=== PATIENT | female | born 1965 | race Asian ===

== ENCOUNTER 2016-09-15 02:24 | Emergency (ER) | payer OTHER ==
[~2016-09-15] VITALS: Ht 167.6 cm; Wt 136.1 kg
[~2016-09-15 02:24] MED LIST: HYDR25TA60 PO
[2016-09-15 03:05] LABS: PLATELET COUNT 288 K/uL (152-353)
[2016-09-15 03:25] LABS: POTASSIUM 3.7 mmol/L (3.6-5.2); SODIUM 134 mmol/L (136-145)
[2016-09-15 03:51] VITALS: BP 142/94; TEMP 98.1
== END 2016-09-15 03:51 | disposition home or self-care (01) ==
LOC: ED 02:24
DX: I10 Essential (primary) hypertension (principal); I20.9 Angina pectoris, unspecified
CPT/HCPCS: 36415; 80053; 82550; 84484; 85027; 86318; 93005; 99284

== ENCOUNTER 2016-11-16 03:00 | Emergency (ER) | payer OTHER ==
[~2016-11-16] VITALS: Ht 167.6 cm; Wt 149.2 kg
[2016-11-16 04:02] VITALS: BP 170/92; TEMP 98.4
== END 2016-11-16 04:05 | disposition home or self-care (01) ==
LOC: ED 03:00
DX: R00.2 Palpitations (principal)
CPT/HCPCS: 93005; 99283

== ENCOUNTER 2017-11-22 01:17 | Emergency (ER) | payer OTHER ==
[~2017-11-22] VITALS: Ht 167.6 cm; Wt 146.6 kg
[2017-11-22 01:22] VITALS: TEMP 97.7
[2017-11-22 02:14] VITALS: BP 169/88
== END 2017-11-22 02:15 | disposition home or self-care (01) ==
LOC: ED 01:17
DX: J20.9 Acute bronchitis, unspecified (principal); I10 Essential (primary) hypertension; R01.1 Cardiac murmur, unspecified
CPT/HCPCS: 99282

== ENCOUNTER 2018-06-16 22:22 | Emergency (ER) | payer OTHER ==
[~2018-06-16] VITALS: Ht 167.6 cm; Wt 136.1 kg
[2018-06-17 01:08] VITALS: BP 128/75; TEMP 98
== END 2018-06-17 01:16 | disposition home or self-care (01) ==
LOC: ED 22:22
DX: M25.562 Pain in left knee (principal); M25.561 Pain in right knee; S39.012A Strain of muscle, fascia and tendon of lower back, initial encounter; I10 Essential (primary) hypertension; M19.90 Unspecified osteoarthritis, unspecified site; W01.0XXA Fall on same level from slipping, tripping and stumbling without subsequent striking against object, initial encounter; Y92.238 Other place in hospital as the place of occurrence of the external cause
CPT/HCPCS: 36415; 96372; 99283; J1885

== ENCOUNTER 2019-02-07 22:42 | Emergency (ER) | payer OTHER ==
[~2019-02-07] VITALS: Ht 167.6 cm; Wt 148.8 kg
[2019-02-07] MEDS ORDERED: FURO20TA67 PO (23:06)
[2019-02-08 01:12] LABS: PLATELET COUNT 273 K/uL (152-353)
[2019-02-08 01:18] LABS: POTASSIUM 4.3 mmol/L (3.6-5.2)
[2019-02-08 02:42] VITALS: BP 177/82; TEMP 97.3
== END 2019-02-08 02:49 | disposition home or self-care (01) ==
LOC: ED 22:42
PROVIDERS: Emergency Medicine Emergency Medical Services
DX: I16.0 Hypertensive urgency (principal)
CPT/HCPCS: 80053; 81000; 85027; 93005; 99283

== ENCOUNTER 2019-04-07 17:57 | Emergency (ER) | payer OTHER ==
[~2019-04-07] VITALS: Ht 167.6 cm; Wt 148.8 kg
[~2019-04-07 17:57] MED LIST changes: +FURO20TA67 PO
[2019-04-07 18:05] VITALS: TEMP 98.2
[2019-04-07 18:47] LABS: PLATELET COUNT 253 K/uL (152-353)
[2019-04-07 18:59] LABS: POTASSIUM 4.3 mmol/L (3.6-5.2); SODIUM 137 mmol/L (136-145)
[2019-04-07 19:35] VITALS: BP 184/101
== END 2019-04-07 19:35 | disposition home or self-care (01) ==
LOC: ED 17:57
PROVIDERS: Student in an Organized Health Care Education/Training Program
DX: R07.89 Other chest pain (principal)
CPT/HCPCS: 80048; 83735; 84484; 85027; 93005; 99283

== ENCOUNTER 2019-06-20 18:55 | Emergency (ER) | payer OTHER ==
[~2019-06-20] VITALS: Ht 167.6 cm; Wt 151.0 kg
[2019-06-20 21:15] VITALS: BP 168/88; TEMP 98.1
== END 2019-06-20 21:15 | disposition home or self-care (01) ==
LOC: ED 18:55
DX: J06.9 Acute upper respiratory infection, unspecified (principal); J98.01 Acute bronchospasm
CPT/HCPCS: 87502; 87651; 99283

== ENCOUNTER 2019-08-18 04:16 | Emergency (ER) | payer OTHER ==
[~2019-08-18] VITALS: Ht 167.6 cm; Wt 136.1 kg
[2019-08-18 04:22] VITALS: TEMP 99.3
[2019-08-18 05:15] LABS: POTASSIUM 3.7 mmol/L (3.6-5.2); SODIUM 137 mmol/L (136-145)
[2019-08-18 05:22] LABS: PLATELET COUNT 280 K/uL (152-353)
[2019-08-18 07:13] VITALS: BP 137/89
== END 2019-08-18 07:17 | disposition home or self-care (01) ==
LOC: ED 04:16
PROVIDERS: Family Medicine
DX: R07.89 Other chest pain (principal); I10 Essential (primary) hypertension
CPT/HCPCS: 36415; 80053; 81000; 82550; 83880; 84484; 85027; 93005; 96365; 96374; 96375; 99284; J1940

== ENCOUNTER 2019-11-10 19:30 | Emergency (ER) | payer OTHER ==
[~2019-11-10] VITALS: Ht 167.6 cm; Wt 136.1 kg
[2019-11-10 19:35] VITALS: TEMP 98.1
[2019-11-10 20:39] LABS: PLATELET COUNT 236 K/uL (152-353)
[2019-11-10 21:30] VITALS: BP 159/93
== END 2019-11-10 21:48 | disposition home or self-care (01) ==
LOC: ED 19:30
PROVIDERS: Emergency Medicine
DX: I10 Essential (primary) hypertension (principal); R42 Dizziness and giddiness; Z79.899 Other long term (current) drug therapy
CPT/HCPCS: 36415; 80053; 85027; 93005; 99283

== ENCOUNTER 2020-02-29 13:30 | Outpatient (CLI) | payer OTHER | END 2020-02-29 20:49 | disposition home or self-care (01) | LOC: RAD 13:30 | DX: Z03.818 Encounter for observation for suspected exposure to other biological agents ruled out (principal) ==

== ENCOUNTER 2020-03-04 12:14 | Outpatient (CLI) | payer OTHER ==
[2020-03-04 15:31] LABS: PLATELET COUNT 330 K/uL (152-353)
== END 2020-03-04 20:31 | disposition home or self-care (01) ==
LOC: LABW 12:14
PROVIDERS: Nurse Practitioner Family
DX: R51 Headache (principal)
CPT/HCPCS: 36415; 85027; 86140

== ENCOUNTER 2020-06-20 18:08 | Emergency (ER) | payer OTHER ==
[~2020-06-20] VITALS: Ht 167.6 cm; Wt 1511.4 kg
[2020-06-20 19:44] LABS: PLATELET COUNT 249 K/uL (152-353)
[2020-06-20 20:10] LABS: POTASSIUM 3.6 mmol/L (3.6-5.2)
[2020-06-20 22:20] VITALS: BP 162/84; TEMP 98
== END 2020-06-20 22:20 | disposition home or self-care (01) ==
LOC: ED 18:08
PROVIDERS: Family Medicine
DX: I10 Essential (primary) hypertension (principal); M79.18 Myalgia, other site
CPT/HCPCS: 36415; 80053; 81000; 85027; 85610; 85730; 96374; 99284; J0360

== ENCOUNTER 2020-07-29 00:28 | Emergency (ER) | payer OTHER ==
[~2020-07-29] VITALS: Ht 167.6 cm; Wt 136.1 kg
[2020-07-29 00:28] VITALS: TEMP 98.7
[2020-07-29 01:25] LABS: PLATELET COUNT 223 K/uL (152-353)
[2020-07-29 01:53] LABS: POTASSIUM 3.8 mmol/L (3.6-5.2); SODIUM 143 mmol/L (136-145)
[2020-07-29 02:45] VITALS: BP 174/83
== END 2020-07-29 02:45 | disposition home or self-care (01) ==
LOC: ED 00:32
PROVIDERS: Emergency Medicine Emergency Medical Services
DX: I10 Essential (primary) hypertension (principal); R07.89 Other chest pain
CPT/HCPCS: 36415; 80053; 83880; 84484; 85027; 85610; 93005; 99284

== ENCOUNTER 2020-12-26 09:20 | Emergency (ER) | payer OTHER ==
[2021-01-09 11:05] LABS: PLATELET COUNT 244 K/uL (152-353)
[2021-01-09 11:12] LABS: POTASSIUM 4.2 mmol/L (3.6-5.2)
== END 2020-12-26 16:05 | disposition home or self-care (01) ==
LOC: ED 09:20
PROVIDERS: Family Medicine
DX: M62.838 Other muscle spasm (principal); M62.830 Muscle spasm of back; D25.9 Leiomyoma of uterus, unspecified; Y93.F9 Activity, other caregiving; Y92.239 Unspecified place in hospital as the place of occurrence of the external cause
CPT/HCPCS: 80053; 81000; 85027; 96372; 99283; J1885

== ENCOUNTER 2022-10-09 08:49 | Emergency (ER) | payer OTHER ==
[~2022-10-09] VITALS: Ht 167.6 cm; Wt 136.1 kg
[2022-10-09 08:55] VITALS: TEMP 98.4
[2022-10-09 10:01] LABS: PLATELET COUNT 249 K/uL (152-353)
[2022-10-09 10:12] LABS: POTASSIUM 4.3 mmol/L (3.6-5.2)
[2022-10-09 11:25] VITALS: BP 143/84
== END 2022-10-09 11:25 | disposition home or self-care (01) ==
LOC: ED 08:49
PROVIDERS: Emergency Medicine
DX: I10 Essential (primary) hypertension (principal); Z91.14 Patient's other noncompliance with medication regimen
CPT/HCPCS: 80053; 82550; 83880; 84484; 85027; 93005; 99283